=== PATIENT | female | born 1980 | race Caucasian/White ===

== ENCOUNTER 2017-10-08 20:12 | Observation (INO) ==
[2017-10-08] MEDS ORDERED: ASPIRIN 325 MG TABLET PO STA (20:58)
[2017-10-08] MEDS ORDERED: ENOXAPARIN 30 MG/0.3 ML SYRINGE SUBCUT STA (21:02)
[2017-10-08 21:21] LABS: Basophils # 0.1 10*3/uL (0.0-0.2); Basophils % 0.8 % (0.0-0.8); Eosinophils # 0.3 10*3/uL (0.0-0.87); Hematocrit 42.1 VOL% (35.7-47.0); Hemoglobin 13.9 GM/DL (12.0-16.0); Immature Granulocytes % 0.2 %; Immature Granulocytes Absolute 0.02 #; Lymphocytes % 27.9 % (21.3-54.2); Mean Corpuscular Hemoglobin 28 PG (27-34); Mean Corpuscular Volume 84.7 FL (87-102); Mean Platelet Volume 10.7 FL (9.6-12.0); Monocytes # 0.7 10*3/uL (0.11-0.8); Monocytes % 6.7 % (1.7-12.7); Neutrophils # 6.6 10*3/uL (1.4-7.4); Neutrophils % 61.4 % (38.7-73.9); Platelet Count 259 T/CUMM (130-400); Red Blood Count 4.97 MC/CUMM (3.8-5.5); Red Cell Distribution Width 12.9 % (9.3-17.3); White Blood Count 10.8 T/CUMM (4-12)
[2017-10-08 21:48] LABS: Albumin 4.3 G/DL (3.4-5.0); Bilirubin,Total 0.4 MG/DL (0.2-1.0); Calcium 9.1 MG/DL (8.5-10.1); Osmolality,Calculated 289.8 MOS/KG (273-304); Potassium 3.5 MMOL/L (3.5-5.1); Total Protein 7.5 G/DL (6.4-8.3)
[2017-10-08] MEDS ORDERED: ENOXAPARIN 80 MG/0.8 ML SYRINGE SUBCUT ONE (23:23)
[2017-10-09] MEDS ORDERED: ACETAMINOPHEN 325 MG TABLET PO PRN (01:20)
[2017-10-09] MEDS ORDERED: ONDANSETRON 4 MG/2 ML VIAL IV PRN (01:20)
[2017-10-09] MEDS ORDERED: MORPHINE 4 MG/1 ML VIAL IV PRN (01:20)
[2017-10-09] MEDS ORDERED: NITROGLYCERIN SL 0.4 MG TABLET SL PRN (01:20)
[2017-10-09] MEDS: METOPROLOL TARTRATE 50 MG TABLET PO SCH ×3 (01:37→21:41)
[2017-10-09 05:30] LABS: Basophils # 0.1 10*3/uL (0.0-0.2); Eosinophils # 0.4 10*3/uL (0.0-0.87); Eosinophils % 4.3 % (0.00-10.9); Hematocrit 38.3 VOL% (35.7-47.0); Hemoglobin 12.4 GM/DL (12.0-16.0); Immature Granulocytes % 0.2 %; Immature Granulocytes Absolute 0.02 #; Lymphocytes % 35.5 % (21.3-54.2); Mean Corpuscular HGB Conc 32.4 GM/DL (32-36); Mean Corpuscular Hemoglobin 27 PG (27-34); Mean Corpuscular Volume 84.4 FL (87-102); Mean Platelet Volume 10.9 FL (9.6-12.0); Monocytes # 0.7 10*3/uL (0.11-0.8); Monocytes % 8.1 % (1.7-12.7); Neutrophils # 4.2 10*3/uL (1.4-7.4); Neutrophils % 50.9 % (38.7-73.9); Platelet Count 241 T/CUMM (130-400); Red Blood Count 4.54 MC/CUMM (3.8-5.5); White Blood Count 8.3 T/CUMM (4-12)
[2017-10-09 06:11] LABS: Calcium 8.9 MG/DL (8.5-10.1); Osmolality,Calculated 280.4 MOS/KG (273-304); Potassium 3.2 MMOL/L (3.5-5.1); Risk Ratio 2.34; Thyroid Stimulating Hormone 2.73 uIU/ml (0.358-3.74); VLDL CHOLESTEROL 19.8 MG/DL
[2017-10-09] MEDS: ASPIRIN EC 81 MG TABLET PO SCH (10:06)
[2017-10-09] MEDS: LISINOPRIL 10 MG TABLET PO SCH (10:06)
[2017-10-09] MEDS: ENOXAPARIN 60 MG/0.6 ML SYRINGE SUBCUT SCH ×2 (10:06→21:41)
[2017-10-09 10:37] LABS: Amorphous Crystals,Urine Occasional /HPF (Few); Apearance,Urine CLEAR (Clear); Bacteria,Urine Occasional /HPF (Few); Bilirubin,Urine Negative (Negative); Blood, Urine Negative (Negative); Glucose,Urine (UA) Negative (Negative); Ketones,Urine 20 mg/dL (Negative); Mucus,Urine Many /LPF (Occasional); Nitrite,Urine Negative (Negative); Protein,Urine 30 MG/DL; RBC,Urine 3 /HPF (0-4); Squamous Epithelial Cell,Urine Occasional /HPF (0-10); Urine Color Yellow (Yellow); Urine Specific Gravity 1.032 (1.001-1.035); WBC,Urine 3 /HPF (0-6)
[2017-10-09 10:45] LABS: Barbiturates Screen,Urine Negative (Negative); Benzodiazepines Screen,Urine Negative (Negative); Cannabinoid Screen,Urine Positive (Negative); Opiate Screen,Urine Negative (Negative); Phencyclidine Screen,Urine Negative (Negative)
[2017-10-09] MEDS ORDERED: LOVASTATIN 20 MG TABLET PO SCH (17:00)
[2017-10-10 08:06] VITALS: BP 124/80
[2017-10-10] MEDS: LISINOPRIL 10 MG TABLET PO SCH (14:45)
[2017-10-10] MEDS: METOPROLOL TARTRATE 50 MG TABLET PO SCH (14:45)
[2017-10-10] MEDS: ASPIRIN EC 81 MG TABLET PO SCH (14:45)
[2017-10-10] MEDS: ENOXAPARIN 60 MG/0.6 ML SYRINGE SUBCUT SCH (14:46)
== END 2017-10-10 16:14 | disposition home or self-care (01) ==
LOC: N.ED 20:12 → N.EDINP 20:12 → N.TELEN 10-09 00:03

== ENCOUNTER 2017-10-20 16:14 | Inpatient (IN) ==
[2017-10-20] MEDS ORDERED: DEXTROSE 50% 25 GM/50 ML VIAL IV PRN (16:29)
[2017-10-20] MEDS ORDERED: GLUCAGON 1 MG VIAL IM PRN (16:29)
[2017-10-20] MEDS ORDERED: SODIUM CHLORIDE 0.9% 1,000 ML IV SCH (16:30)
[2017-10-20 19:18] LABS: Basophils # 0.1 10*3/uL (0.0-0.2); Basophils % 0.9 % (0.0-0.8); Eosinophils # 0.1 10*3/uL (0.0-0.87); Eosinophils % 1.9 % (0.00-10.9); Hematocrit 37.2 VOL% (35.7-47.0); Immature Granulocytes % 0.3 %; Immature Granulocytes Absolute 0.02 #; Lymphocytes # 2.5 10*3/uL (1.4-4.0); Mean Corpuscular HGB Conc 32.3 GM/DL (32-36); Mean Corpuscular Hemoglobin 28 PG (27-34); Mean Corpuscular Volume 85.9 FL (87-102); Mean Platelet Volume 10.7 FL (9.6-12.0); Monocytes # 0.5 10*3/uL (0.11-0.8); Monocytes % 7.2 % (1.7-12.7); Neutrophils # 3.5 10*3/uL (1.4-7.4); Neutrophils % 52.7 % (38.7-73.9); Platelet Count 209 T/CUMM (130-400); Red Blood Count 4.33 MC/CUMM (3.8-5.5); Red Cell Distribution Width 13.7 % (9.3-17.3); White Blood Count 6.7 T/CUMM (4-12)
[2017-10-20] MEDS ORDERED: CLORAZEPATE 3.75 MG TABLET PO PRN (19:30)
[2017-10-20 19:41] LABS: Alanine Aminotransferase 60 U/L (13-56); Albumin 3.2 G/DL (3.4-5.0); Alkaline Phosphatase 80 U/L (45-117); Aspartate Amino Transferase 52 U/L (0-37); Bilirubin,Total < 0.39 MG/DL (0.2-1.0); Blood Urea Nitrogen 13 MG/DL (7-18); Calcium 7.9 MG/DL (8.5-10.1); Glucose 77 MG/DL (74-106); Osmolality,Calculated 277.4 MOS/KG (273-304); Potassium 4.2 MMOL/L (3.5-5.1); Sodium 140 MMOL/L (136-145); Total Protein 6.5 G/DL (6.4-8.3)
[2017-10-20] MEDS ORDERED: DIAZEPAM 5 MG TABLET PO ONE (20:13)
[2017-10-20] MEDS ORDERED: FAMOTIDINE 20 MG TABLET PO ONE (20:13)
[2017-10-20] MEDS: CHLORHEXIDINE 0.12% ORAL RINSE 60 ML BOTTLE SWISH/SPIT SCH (20:50)
[2017-10-20] MEDS ORDERED: ZALEPLON 5 MG CAPSULE PO PRN (21:00)
[2017-10-20] MEDS: CHLORHEXIDINE 4% SOLN 118 ML BOTTLE TOP SCH (21:15)
[2017-10-21 04:34] LABS: ABG HCO3 24.5 MMOL/L (20-26); ABG Oxygen Saturation 97.5 % (95-100); ABG PH 7.359 (7.35-7.45); ABG PO2 98.3 MM HG (80-95); ABG TCO2 23.1 MMOL/L (23-27)
[2017-10-21] MEDS ORDERED: DIAZEPAM 5 MG TABLET PO ONE (05:30)
[2017-10-21] MEDS ORDERED: FAMOTIDINE 20 MG TABLET PO ONE (05:30)
[2017-10-21] MEDS ORDERED: PAPAVERINE 60 MG/2 ML VIAL ONE (05:38)
[2017-10-21] MEDS ORDERED: VANCOMYCIN 1,000 MG VIAL ONE (05:39)
[2017-10-21] MEDS ORDERED: MIDAZOLAM 10 MG/2 ML VIAL ONE ×2 (05:49→05:50)
[2017-10-21] MEDS ORDERED: HEPARIN/NACL 0.9% 2 UNITS/ML 500 ML IV ONE (05:49)
[2017-10-21] MEDS ORDERED: SUFentanil 250 MCG/5 ML AMP ONE (05:49)
[2017-10-21] MEDS ORDERED: NITROGLYCERIN DRIP 50 MG/250 ML BOTTLE IV ONE (05:50)
[2017-10-21] MEDS ORDERED: PHENYLEPHRINE DRIP 20 MG/250 ML PREMIX IV ONE ×2 (05:50)
[2017-10-21] MEDS ORDERED: CEFUROXIME INJ 1,500 MG in SYRINGE 1 EACH IV ONE (06:30)
[2017-10-21] MEDS: CHLORHEXIDINE 0.12% ORAL RINSE 60 ML BOTTLE SWISH/SPIT SCH ×4 (06:32→20:58)
[2017-10-21] MEDS ORDERED: PHENYLEPHRINE DRIP 40 MG/250 ML PREMIX IV ONE (07:27)
[2017-10-21] MEDS ORDERED: CALCIUM CHLORIDE 1,000 MG/10 ML SYRINGE IV ONE (07:28)
[2017-10-21] MEDS ORDERED: POTASSIUM CHLORIDE RIDER 100 ML IV ONE (07:28)
[2017-10-21] MEDS ORDERED: SODIUM BICARBONATE 50 MEQ/50 ML SYRINGE IV ONE ×2 (07:28→10:07)
[2017-10-21] MEDS ORDERED: EPINEPHrine 1 MG/10 ML SYRINGE ONE (07:29)
[2017-10-21] MEDS ORDERED: ALBUMIN 5% 12.5 GM/250 ML VIAL IV ONE (07:29)
[2017-10-21 07:37] LABS: ABG Base Excess -0.2 MMOL/L (-2.5-2.5); ABG HCO3 22.2 MMOL/L (20-26); ABG Oxygen Saturation 99.3 % (95-100); ABG PH 7.501 (7.35-7.45); ABG PO2 493.3 MM HG (80-95); Glucose Heart Surgery 77 MG/DL (74-106); Hemoglobin Heart Surgery 11.6 G/DL (12.0-16.0); Ionized Calcium Arterial 1.07 MMOL/L (1.21-1.46); PH Patient Temp Arterial 7.501; PO2 Patient Temp Arterial 493.3 MM HG; Patient Temperature 37 CELCIUS; Potassium Heart/CVR 3.8 MMOL/L (3.5-5.1); Sodium Heart/CVR 138 MMOL/L (135-145)
[2017-10-21] MEDS: CHLORHEXIDINE 4% SOLN 118 ML BOTTLE TOP SCH (08:20)
[2017-10-21 09:02] LABS: Hemoglobin Heart Surgery 8.7 G/DL (12.0-16.0); PCO2 Patient Temp Venous 29.3 MM HG; PH Patient Temp Venous 7.476; PO2 Patient Temp Venous 42.1 MM HG; VBG Base Excess -1.2 MEQ/L (0-4); VBG HCO3 23.3 MEQ/L (24-28); VBG Oxygen Saturation 89.2 %; VBG PCO2 33.9 MMHG (41-51); VBG PH 7.432; VBG PO2 51.7 MMHG (17-40)
[2017-10-21 09:34] LABS: Hematocrit Heart Surgery 28.7 PERCENT (37-47); Hemoglobin Heart Surgery 9.3 G/DL (12.0-16.0); PH Patient Temp Venous 7.428; PO2 Patient Temp Venous 40.2 MM HG; Potassium Heart/CVR 5.8 MMOL/L (3.5-5.1); VBG HCO3 22.4 MEQ/L (24-28); VBG Oxygen Saturation 77.9 %; VBG PH 7.428; VBG PO2 40.2 MMHG (17-40)
[2017-10-21 09:58] LABS: ABG Base Excess -3.9 MMOL/L (-2.5-2.5); ABG HCO3 21.2 MMOL/L (20-26); ABG Oxygen Saturation 99.7 % (95-100); ABG PCO2 30.7 MM HG (35-48); ABG PH 7.417 (7.35-7.45); ABG TCO2 17.8 MMOL/L (23-27); Glucose Heart Surgery 214 MG/DL (74-106); Hematocrit Heart Surgery 32.7 PERCENT (37-47); Hemoglobin Heart Surgery 10.6 G/DL (12.0-16.0); Ionized Calcium Arterial 1.62 MMOL/L (1.21-1.46); PCO2 Patient Temp Arterial 30.7 MMHG; PH Patient Temp Arterial 7.417; Patient Temperature 37 CELCIUS; Potassium Heart/CVR 4.3 MMOL/L (3.5-5.1); Sodium Heart/CVR 134 MMOL/L (135-145)
[2017-10-21] MEDS ORDERED: MAGNESIUM SULFATE 10 GM/20 ML VIAL IV ONE (10:07)
[2017-10-21] MEDS ORDERED: HEPARIN 10,000 UNIT/10 ML VIAL ONE (10:07)
[2017-10-21] MEDS ORDERED: methylPREDNISolone SOD SUC 1,000 MG/8 ML VIAL ONE (10:07)
[2017-10-21] MEDS ORDERED: ALBUMIN 25% 25 GM/100 ML VIAL IV ONE (10:07)
[2017-10-21] MEDS ORDERED: FUROSEMIDE 20 MG/2 ML VIAL ONE (10:07)
[2017-10-21] MEDS ORDERED: DEXTROSE 5% KCL 20 MEQ 20 MEQ/1,000 ML BAG IV ONE (10:07)
[2017-10-21] MEDS ORDERED: MANNITOL 12.5 GM/50 ML VIAL IV ONE (10:07)
[2017-10-21] MEDS ORDERED: PROTAMINE SULFATE 250 MG/25 ML VIAL IV ONE (10:07)
[2017-10-21] MEDS ORDERED: PHENYLEPHRINE 1 MG/10 ML SYRINGE IV ONE ×2 (10:07→11:06)
[2017-10-21] MEDS ORDERED: VECURONIUM 10 MG VIAL IV PRN ×2 (11:01)
[2017-10-21] MEDS ORDERED: CALCIUM CHLORIDE 1,000 MG/10 ML SYRINGE IV PRN (11:01)
[2017-10-21] MEDS ORDERED: MAGNESIUM SULF RIDER 4 GM in PREMIX 1 EACH IV PRN (11:01)
[2017-10-21] MEDS ORDERED: ONDANSETRON 4 MG/2 ML VIAL IV PRN (11:01)
[2017-10-21] MEDS ORDERED: NITROPRUSSIDE 100 MG in DEXTROSE 5% 250 ML IV PRN (11:01)
[2017-10-21] MEDS ORDERED: MIDAZOLAM 2 MG/2 ML VIAL IV PRN (11:01)
[2017-10-21] MEDS ORDERED: MORPHINE 4 MG/1 ML VIAL IV PRN (11:01)
[2017-10-21] MEDS ORDERED: MIDAZOLAM 10 MG/2 ML VIAL IV PRN (11:01)
[2017-10-21] MEDS ORDERED: INSULIN REGULAR 100 UNIT/ML IV PRN (11:01)
[2017-10-21] MEDS ORDERED: MAGNESIUM SULF RIDER 2 GM in PREMIX 1 EACH IV PRN (11:01)
[2017-10-21] MEDS ORDERED: PHENYLEPHRINE DRIP 40 MG/250 ML PREMIX IV PRN (11:01)
[2017-10-21] MEDS ORDERED: DEXTROSE 50% 25 GM/50 ML VIAL IV PRN ×2 (11:01)
[2017-10-21] MEDS ORDERED: MORPHINE 10 MG/1 ML VIAL IV PRN (11:01)
[2017-10-21] MEDS ORDERED: INSULIN REGULAR 100 UNIT/ML IV ONE (11:01)
[2017-10-21] MEDS ORDERED: ACETAMINOPHEN 650 MG SUPP RECTAL PRN (11:01)
[2017-10-21] MEDS ORDERED: SEVOFLURANE 1 UNIT/15 MINUTE INH ONE (11:05)
[2017-10-21] MEDS ORDERED: CALCIUM CHLORIDE 1,000 MG/10 ML VIAL IV ONE (11:05)
[2017-10-21] MEDS ORDERED: MINERAL OIL/PETROLATUM OPH OINT 3.5 GM TUBE ONE (11:05)
[2017-10-21] MEDS ORDERED: ETOMIDATE 40 MG/20 ML VIAL IV ONE (11:05)
[2017-10-21] MEDS ORDERED: AMINOCAPROIC ACID 5,000 MG/20 ML VIAL IV ONE (11:06)
[2017-10-21] MEDS ORDERED: SODIUM CHLORIDE 0.9% 1,000 ML IV ONE (11:06)
[2017-10-21] MEDS ORDERED: ROCURONIUM 100 MG/10 ML VIAL IV ONE (11:06)
[2017-10-21] MEDS ORDERED: SODIUM CHLORIDE 0.9% 250 ML IV ONE (11:06)
[2017-10-21 11:19] LABS: ABG HCO3 25.3 MMOL/L (20-26); ABG Oxygen Saturation 99.3 % (95-100); ABG PCO2 36.4 MM HG (35-48); ABG PH 7.441 (7.35-7.45); ABG TCO2 21.8 MMOL/L (23-27); Glucose Heart Surgery 162 MG/DL (74-106); Hematocrit Heart Surgery 37.5 PERCENT (37-47); Hemoglobin Heart Surgery 12.2 G/DL (12.0-16.0); Potassium Heart/CVR 3.4 MMOL/L (3.5-5.1)
[2017-10-21 11:21] LABS: Basophils % 0.3 % (0.0-0.8); Eosinophils # 0.1 10*3/uL (0.0-0.87); Eosinophils % 0.9 % (0.00-10.9); Hematocrit 36.1 VOL% (35.7-47.0); Hemoglobin 12.1 GM/DL (12.0-16.0); Immature Granulocytes % 0.5 %; Immature Granulocytes Absolute 0.05 #; Lymphocytes # 0.7 10*3/uL (1.4-4.0); Lymphocytes % 7.1 % (21.3-54.2); Mean Corpuscular HGB Conc 33.5 GM/DL (32-36); Mean Corpuscular Hemoglobin 28 PG (27-34); Mean Corpuscular Volume 84.7 FL (87-102); Mean Platelet Volume 10.7 FL (9.6-12.0); Monocytes # 0.5 10*3/uL (0.11-0.8); Monocytes % 5.4 % (1.7-12.7); Neutrophils % 85.8 % (38.7-73.9); Platelet Count 180 T/CUMM (130-400); Red Blood Count 4.26 MC/CUMM (3.8-5.5); Red Cell Distribution Width 13.4 % (9.3-17.3); White Blood Count 9.3 T/CUMM (4-12)
[2017-10-21] MEDS: POTASSIUM CHLORIDE RIDER 20 MEQ in PREMIX 1 EACH IV PRN ×6 (11:31→20:59)
[2017-10-21] MEDS: SODIUM CHLORIDE 0.45% 1,000 ML IV SCH ×2 (11:31)
[2017-10-21] MEDS: KETOROLAC 30 MG/1 ML VIAL IV SCH ×3 (11:33→23:26)
[2017-10-21 11:38] LABS: Partial Thromboplastin Time 28.1 SECS (0-40)
[2017-10-21 11:52] LABS: Calcium 10.3 MG/DL (8.5-10.1); Potassium 3.6 MMOL/L (3.5-5.1); Total Protein 5.4 G/DL (6.4-8.3)
[2017-10-21 11:54] LABS: CKMB % 8.1 %
[2017-10-21] MEDS ORDERED: HYDROmorphone 2 MG/1 ML VIAL IV PRN (11:54)
[2017-10-21 11:56] LABS: Troponin I 2.64 NG/ML (0.00-0.045)
[2017-10-21] MEDS ORDERED: PROTAMINE SULFATE 50 MG/5 ML VIAL IV ONE ×2 (12:35→12:46)
[2017-10-21 12:50] LABS: ABG Base Excess 1.4 MMOL/L (-2.5-2.5); ABG HCO3 25.7 MMOL/L (20-26); ABG Oxygen Saturation 99.1 % (95-100); ABG PCO2 36.9 MM HG (35-48); ABG PH 7.443 (7.35-7.45); Glucose Heart Surgery 126 MG/DL (74-106); Hematocrit Heart Surgery 39.6 PERCENT (37-47); Hemoglobin Heart Surgery 12.9 G/DL (12.0-16.0); Potassium Heart/CVR 4.2 MMOL/L (3.5-5.1)
[2017-10-21 14:01] LABS: ABG Base Excess 1.3 MMOL/L (-2.5-2.5); ABG HCO3 25.6 MMOL/L (20-26); ABG Oxygen Saturation 99.1 % (95-100); ABG PCO2 37.5 MM HG (35-48); ABG PH 7.437 (7.35-7.45); Glucose Heart Surgery 136 MG/DL (74-106); Hematocrit Heart Surgery 40.4 PERCENT (37-47); Hemoglobin Heart Surgery 13.1 G/DL (12.0-16.0); Potassium Heart/CVR 3.7 MMOL/L (3.5-5.1)
[2017-10-21] MEDS: ALBUMIN 5% 12.5 GM in PREMIX 1 EACH IV PRN ×3 (14:02→18:09)
[2017-10-21] MEDS: INSULIN REGULAR DRIP 100 ML IV SCH (14:08)
[2017-10-21] MEDS: POTASSIUM CHLORIDE RIDER 10 MEQ in PREMIX 1 EACH IV PRN ×2 (15:12→18:00)
[2017-10-21 16:01] LABS: ABG Base Excess -0.1 MMOL/L (-2.5-2.5); ABG HCO3 24.4 MMOL/L (20-26); ABG PCO2 40.9 MM HG (35-48); ABG PH 7.391 (7.35-7.45); Glucose Heart Surgery 141 MG/DL (74-106); Hematocrit Heart Surgery 36.6 PERCENT (37-47); Hemoglobin Heart Surgery 11.9 G/DL (12.0-16.0); Potassium Heart/CVR 4.4 MMOL/L (3.5-5.1)
[2017-10-21] MEDS: INSULIN REGULAR 100 UNIT/ML SUBCUT SCH ×3 (16:07→23:33)
[2017-10-21 16:31] LABS: Apearance,Urine CLEAR (Clear); Bacteria,Urine Occasional /HPF (Few); Bilirubin,Urine Negative (Negative); Blood, Urine Negative (Negative); Glucose,Urine (UA) Negative (Negative); Hyaline Casts,Urine 2 /LPF (0-3); Ketones,Urine Negative (Negative); Mucus,Urine Occasional /LPF (Occasional); Nitrite,Urine Negative (Negative); Protein,Urine Negative; RBC,Urine <1 /HPF (0-4); Urine Color Straw (Yellow); Urine Specific Gravity 1.012 (1.001-1.035); Urine Urobilinogen < 2.0 EU/DL (0.2-1.0); WBC,Urine <1 /HPF (0-6)
[2017-10-21 17:35] LABS: ABG Base Excess -0.9 MMOL/L (-2.5-2.5); ABG HCO3 23.7 MMOL/L (20-26); ABG Oxygen Saturation 98.7 % (95-100); ABG PCO2 41.3 MM HG (35-48); ABG PH 7.377 (7.35-7.45); ABG TCO2 21.6 MMOL/L (23-27); Glucose Heart Surgery 140 MG/DL (74-106); Hematocrit Heart Surgery 36.2 PERCENT (37-47); Hemoglobin Heart Surgery 11.7 G/DL (12.0-16.0); Potassium Heart/CVR 4.5 MMOL/L (3.5-5.1)
[2017-10-21] MEDS: CEFUROXIME INJ 1,500 MG in SYRINGE 1 EACH IV SCH (18:01)
[2017-10-21] MEDS: LACTATED RINGERS 250 ML IV PRN ×4 (18:06→18:39)
[2017-10-21] MEDS ORDERED: LACTATED RINGERS 1,000 ML IV PRN (18:49)
[2017-10-21 18:50] LABS: ABG Base Excess -2.6 MMOL/L (-2.5-2.5); ABG HCO3 22.2 MMOL/L (20-26); ABG Oxygen Saturation 98.3 % (95-100); ABG PCO2 40.9 MM HG (35-48); ABG PH 7.354 (7.35-7.45); ABG TCO2 20.7 MMOL/L (23-27); Glucose Heart Surgery 155 MG/DL (74-106); Hemoglobin Heart Surgery 10.4 G/DL (12.0-16.0); Potassium Heart/CVR 4.3 MMOL/L (3.5-5.1)
[2017-10-21] MEDS ORDERED: FUROSEMIDE 40 MG/4 ML VIAL IV PRN (19:52)
[2017-10-21 20:52] LABS: CKMB % 5.6 %
[2017-10-21 20:55] LABS: Troponin I 3.96 NG/ML (0.00-0.045)
[2017-10-22 03:53] LABS: ABG Base Excess -1.7 MMOL/L (-2.5-2.5); ABG Oxygen Saturation 99.1 % (95-100); ABG PCO2 39.6 MM HG (35-48); ABG PH 7.376 (7.35-7.45); ABG TCO2 20.9 MMOL/L (23-27); Glucose Heart Surgery 164 MG/DL (74-106); Hematocrit Heart Surgery 34.7 PERCENT (37-47); Hemoglobin Heart Surgery 11.3 G/DL (12.0-16.0)
[2017-10-22 03:55] LABS: Basophils % 0.1 % (0.0-0.8); Hematocrit 34.6 VOL% (35.7-47.0); Hemoglobin 11.3 GM/DL (12.0-16.0); Immature Granulocytes % 0.4 %; Immature Granulocytes Absolute 0.09 #; Lymphocytes # 0.6 10*3/uL (1.4-4.0); Lymphocytes % 2.5 % (21.3-54.2); Mean Corpuscular HGB Conc 32.7 GM/DL (32-36); Mean Corpuscular Hemoglobin 28 PG (27-34); Mean Corpuscular Volume 86.5 FL (87-102); Monocytes # 0.9 10*3/uL (0.11-0.8); Monocytes % 3.9 % (1.7-12.7); Neutrophils # 20.9 10*3/uL (1.4-7.4); Neutrophils % 93.1 % (38.7-73.9); Platelet Count 178 T/CUMM (130-400); Red Cell Distribution Width 13.7 % (9.3-17.3); White Blood Count 22.5 T/CUMM (4-12)
[2017-10-22] MEDS: POTASSIUM CHLORIDE RIDER 20 MEQ in PREMIX 1 EACH IV PRN ×2 (03:58→07:26)
[2017-10-22 04:13] LABS: CKMB % 4.2 %
[2017-10-22 04:17] LABS: Troponin I 3.36 NG/ML (0.00-0.045)
[2017-10-22 04:19] LABS: Albumin 3.9 G/DL (3.4-5.0); Bilirubin,Direct 0.17 MG/DL (0.0-0.20); Bilirubin,Total 0.6 MG/DL (0.2-1.0); Calcium 9.2 MG/DL (8.5-10.1); Osmolality,Calculated 290.8 MOS/KG (273-304); Total Protein 6.4 G/DL (6.4-8.3)
[2017-10-22] MEDS: INSULIN REGULAR 100 UNIT/ML SUBCUT SCH ×2 (04:34→07:25)
[2017-10-22] MEDS: KETOROLAC 30 MG/1 ML VIAL IV SCH ×2 (04:39→12:16)
[2017-10-22 04:46] LABS: Lymphocytes 10 % (20-55); Platelet Estimate Normal; Segmented Neutrophils 90 % (50-85); Total Cells Counted 100
[2017-10-22 05:41] LABS: ABG Base Excess -0.7 MMOL/L (-2.5-2.5); ABG HCO3 23.9 MMOL/L (20-26); ABG Oxygen Saturation 99.4 % (95-100); ABG PCO2 31.6 MM HG (35-48); ABG PH 7.457 (7.35-7.45); ABG TCO2 19.7 MMOL/L (23-27); Glucose Heart Surgery 153 MG/DL (74-106); Hematocrit Heart Surgery 37.1 PERCENT (37-47); Potassium Heart/CVR 4.3 MMOL/L (3.5-5.1)
[2017-10-22] MEDS: CEFUROXIME INJ 1,500 MG in SYRINGE 1 EACH IV SCH (06:02)
[2017-10-22 07:13] LABS: ABG Base Excess -0.5 MMOL/L (-2.5-2.5); ABG Oxygen Saturation 99.2 % (95-100); ABG PCO2 35.7 MM HG (35-48); ABG PH 7.425 (7.35-7.45); ABG TCO2 20.9 MMOL/L (23-27); Glucose Heart Surgery 143 MG/DL (74-106); Hematocrit Heart Surgery 35.1 PERCENT (37-47); Hemoglobin Heart Surgery 11.4 G/DL (12.0-16.0); Potassium Heart/CVR 3.8 MMOL/L (3.5-5.1)
[2017-10-22] MEDS: POTASSIUM CHLORIDE RIDER 10 MEQ in PREMIX 1 EACH IV PRN (07:58)
[2017-10-22] MEDS ORDERED: LISINOPRIL 10 MG TABLET PO SCH (09:30)
[2017-10-22] MEDS ORDERED: METOPROLOL TARTRATE 50 MG TABLET PO SCH (09:30)
[2017-10-22] MEDS: METOPROLOL TARTRATE 25 MG TABLET PO SCH ×2 (10:19→21:04)
[2017-10-22] MEDS: CHLORHEXIDINE 0.12% ORAL RINSE 60 ML BOTTLE SWISH/SPIT SCH ×2 (10:20→21:05)
[2017-10-22] MEDS ORDERED: MAGNESIUM HYDROXIDE SUSP 30 ML UDCUP PO PRN (11:32)
[2017-10-22] MEDS ORDERED: MAGNESIUM SULF RIDER 4 GM in PREMIX 1 EACH IV PRN (11:32)
[2017-10-22] MEDS ORDERED: POTASSIUM CHLORIDE 20 MEQ TABLET PO PRN (11:32)
[2017-10-22] MEDS ORDERED: GLUCAGON 1 MG VIAL IM PRN ×2 (11:32)
[2017-10-22] MEDS ORDERED: MAGNESIUM SULF RIDER 2 GM in PREMIX 1 EACH IV PRN (11:32)
[2017-10-22] MEDS ORDERED: SODIUM CHLOR 0.45% KCL 20 MEQ 20 MEQ/1,000 ML BAG IV SCH (11:32)
[2017-10-22] MEDS ORDERED: ACETAMINOPHEN 325 MG TABLET PO PRN (11:32)
[2017-10-22] MEDS ORDERED: DEXTROSE 50% 25 GM/50 ML VIAL IV PRN ×2 (11:32)
[2017-10-22] MEDS ORDERED: ALUMINUM/MAGNES/SIMETH MAX STR 30 ML UDCUP PO PRN (11:32)
[2017-10-22] MEDS: KETOROLAC 15 MG/1 ML VIAL IV SCH ×3 (11:59→23:26)
[2017-10-22 12:05] LABS: CKMB % 2.8 %
[2017-10-22 12:07] LABS: Troponin I 3.35 NG/ML (0.00-0.045)
[2017-10-22] MEDS: SODIUM CHLORIDE 0.45% 1,000 ML IV SCH ×2 (12:14)
[2017-10-22] MEDS: INSULIN REGULAR DRIP 100 ML IV SCH (12:15)
[2017-10-22] MEDS: HYDROmorphone 2 MG/1 ML VIAL IV PRN (15:08)
[2017-10-22] MEDS: ONDANSETRON 4 MG/2 ML VIAL IV PRN ×2 (18:30→23:26)
[2017-10-23] MEDS: oxyCODONE/ACETAMINOPHEN 5-325 MG TABLET PO PRN ×4 (04:22→21:58)
[2017-10-23] MEDS: ONDANSETRON 4 MG/2 ML VIAL IV PRN (04:30)
[2017-10-23] MEDS ORDERED: FUROSEMIDE 40 MG/4 ML VIAL IV ONE (06:00)
[2017-10-23 06:02] LABS: Basophils % 0.2 % (0.0-0.8); Eosinophils % 0.1 % (0.00-10.9); Hematocrit 29.3 VOL% (35.7-47.0); Hemoglobin 9.3 GM/DL (12.0-16.0); Immature Granulocytes % 0.4 %; Immature Granulocytes Absolute 0.06 #; Lymphocytes # 2.1 10*3/uL (1.4-4.0); Lymphocytes % 13.5 % (21.3-54.2); Mean Corpuscular HGB Conc 31.7 GM/DL (32-36); Mean Corpuscular Hemoglobin 28 PG (27-34); Mean Platelet Volume 12.1 FL (9.6-12.0); Monocytes # 1.1 10*3/uL (0.11-0.8); Monocytes % 7.2 % (1.7-12.7); Neutrophils # 12.1 10*3/uL (1.4-7.4); Neutrophils % 78.6 % (38.7-73.9); Platelet Count 149 T/CUMM (130-400); Red Blood Count 3.33 MC/CUMM (3.8-5.5); Red Cell Distribution Width 14.5 % (9.3-17.3); White Blood Count 15.5 T/CUMM (4-12)
[2017-10-23] MEDS: KETOROLAC 15 MG/1 ML VIAL IV SCH (06:11)
[2017-10-23 06:21] LABS: Alanine Aminotransferase 41 U/L (13-56); Albumin 3.1 G/DL (3.4-5.0); Alkaline Phosphatase 56 U/L (45-117); Aspartate Amino Transferase 45 U/L (0-37); Bilirubin,Direct < 0.100 MG/DL (0.0-0.20); Bilirubin,Indirect 0.4 MG/DL (0.0-1.0); Blood Urea Nitrogen 24 MG/DL (7-18); CKMB % 1.6 %; Calcium 8.4 MG/DL (8.5-10.1); Glucose 97 MG/DL (74-106); Osmolality,Calculated 280.5 MOS/KG (273-304); Potassium 4.1 MMOL/L (3.5-5.1); Sodium 139 MMOL/L (136-145); Total Protein 5.8 G/DL (6.4-8.3)
[2017-10-23] MEDS ORDERED: KETOROLAC 15 MG/1 ML VIAL IV PRN (08:15)
[2017-10-23] MEDS: METOPROLOL TARTRATE 25 MG TABLET PO SCH ×2 (08:40→20:34)
[2017-10-23] MEDS: FERROUS SULFATE 325 MG TABLET PO SCH (08:41)
[2017-10-23] MEDS: LOVASTATIN 20 MG TABLET PO SCH (08:41)
[2017-10-23] MEDS: DOCUSATE SODIUM 100 MG CAPSULE PO SCH (08:41)
[2017-10-23] MEDS: NICOTINE 21 MG/24 HR PATCH TRANSDERM SCH (08:41)
[2017-10-23] MEDS: ASPIRIN EC 325 MG TABLET PO SCH (08:41)
[2017-10-23] MEDS: PANTOPRAZOLE 40 MG TABLET PO SCH (08:41)
[2017-10-23] MEDS: CHLORHEXIDINE 0.12% ORAL RINSE 60 ML BOTTLE SWISH/SPIT SCH ×2 (08:42→20:32)
[2017-10-24] MEDS: oxyCODONE/ACETAMINOPHEN 5-325 MG TABLET PO PRN ×3 (04:32→21:49)
[2017-10-24 05:14] LABS: Basophils % 0.4 % (0.0-0.8); Eosinophils # 0.1 10*3/uL (0.0-0.87); Eosinophils % 1.1 % (0.00-10.9); Hematocrit 30.1 VOL% (35.7-47.0); Hemoglobin 10.1 GM/DL (12.0-16.0); Immature Granulocytes % 0.3 %; Immature Granulocytes Absolute 0.03 #; Lymphocytes # 1.9 10*3/uL (1.4-4.0); Lymphocytes % 20.8 % (21.3-54.2); Mean Corpuscular HGB Conc 33.6 GM/DL (32-36); Mean Corpuscular Hemoglobin 28 PG (27-34); Mean Corpuscular Volume 84.6 FL (87-102); Mean Platelet Volume 11.9 FL (9.6-12.0); Monocytes # 1.1 10*3/uL (0.11-0.8); Monocytes % 11.6 % (1.7-12.7); Neutrophils # 6.1 10*3/uL (1.4-7.4); Neutrophils % 65.8 % (38.7-73.9); Platelet Count 155 T/CUMM (130-400); Red Blood Count 3.56 MC/CUMM (3.8-5.5); White Blood Count 9.2 T/CUMM (4-12)
[2017-10-24 05:41] LABS: Alanine Aminotransferase 98 U/L (13-56); Albumin 3.3 G/DL (3.4-5.0); Alkaline Phosphatase 102 U/L (45-117); Aspartate Amino Transferase 92 U/L (0-37); Bilirubin,Indirect 0.4 MG/DL (0.0-1.0); Blood Urea Nitrogen 18 MG/DL (7-18); Calcium 9.1 MG/DL (8.5-10.1); Glucose 94 MG/DL (74-106); Osmolality,Calculated 278.5 MOS/KG (273-304); Sodium 139 MMOL/L (136-145); Total Protein 6.6 G/DL (6.4-8.3)
[2017-10-24] MEDS ORDERED: LACTULOSE 20 GM/30 ML UDCUP PO PRN (09:14)
[2017-10-24] MEDS: HYDROmorphone 2 MG/1 ML VIAL IV PRN (09:37)
[2017-10-24] MEDS: ONDANSETRON 4 MG/2 ML VIAL IV PRN (09:38)
[2017-10-24] MEDS: LOVASTATIN 20 MG TABLET PO SCH (09:43)
[2017-10-24] MEDS: NICOTINE 21 MG/24 HR PATCH TRANSDERM SCH (09:43)
[2017-10-24] MEDS: PANTOPRAZOLE 40 MG TABLET PO SCH (09:43)
[2017-10-24] MEDS: ASPIRIN EC 325 MG TABLET PO SCH (09:43)
[2017-10-24] MEDS: DOCUSATE SODIUM 100 MG CAPSULE PO SCH (09:43)
[2017-10-24] MEDS: METOPROLOL TARTRATE 25 MG TABLET PO SCH ×2 (09:43→21:49)
[2017-10-24] MEDS: FERROUS SULFATE 325 MG TABLET PO SCH (09:43)
[2017-10-24] MEDS: CHLORHEXIDINE 0.12% ORAL RINSE 60 ML BOTTLE SWISH/SPIT SCH ×2 (10:09→21:51)
[2017-10-25] MEDS: oxyCODONE/ACETAMINOPHEN 5-325 MG TABLET PO PRN ×4 (00:56→21:39)
[2017-10-25] MEDS: ZALEPLON 5 MG CAPSULE PO PRN ×2 (00:57→21:39)
[2017-10-25] MEDS: METOPROLOL TARTRATE 25 MG TABLET PO SCH ×2 (08:45→21:40)
[2017-10-25] MEDS: NICOTINE 21 MG/24 HR PATCH TRANSDERM SCH (08:45)
[2017-10-25] MEDS: ASPIRIN EC 325 MG TABLET PO SCH (08:46)
[2017-10-25] MEDS: PANTOPRAZOLE 40 MG TABLET PO SCH (08:46)
[2017-10-25] MEDS: LOVASTATIN 20 MG TABLET PO SCH (08:46)
[2017-10-25] MEDS: FERROUS SULFATE 325 MG TABLET PO SCH (08:46)
[2017-10-25] MEDS: CHLORHEXIDINE 0.12% ORAL RINSE 60 ML BOTTLE SWISH/SPIT SCH ×2 (08:47→21:40)
[2017-10-25] MEDS: DOCUSATE SODIUM 100 MG CAPSULE PO SCH (08:47)
[2017-10-25] MEDS: ONDANSETRON 4 MG/2 ML VIAL IV PRN (21:45)
[2017-10-26] MEDS: oxyCODONE/ACETAMINOPHEN 5-325 MG TABLET PO PRN (02:42)
[2017-10-26 04:23] LABS: Basophils % 0.5 % (0.0-0.8); Eosinophils # 0.4 10*3/uL (0.0-0.87); Eosinophils % 5.5 % (0.00-10.9); Hematocrit 33.7 VOL% (35.7-47.0); Hemoglobin 11.2 GM/DL (12.0-16.0); Immature Granulocytes % 0.4 %; Immature Granulocytes Absolute 0.03 #; Lymphocytes # 1.7 10*3/uL (1.4-4.0); Lymphocytes % 21.8 % (21.3-54.2); Mean Corpuscular HGB Conc 33.2 GM/DL (32-36); Mean Corpuscular Hemoglobin 28 PG (27-34); Mean Corpuscular Volume 84.9 FL (87-102); Mean Platelet Volume 10.9 FL (9.6-12.0); Monocytes # 0.8 10*3/uL (0.11-0.8); Monocytes % 9.6 % (1.7-12.7); Neutrophils % 62.2 % (38.7-73.9); Platelet Count 243 T/CUMM (130-400); Red Blood Count 3.97 MC/CUMM (3.8-5.5); Red Cell Distribution Width 13.3 % (9.3-17.3)
[2017-10-26 04:37] LABS: Alanine Aminotransferase 115 U/L (13-56); Albumin 3.2 G/DL (3.4-5.0); Alkaline Phosphatase 217 U/L (45-117); Aspartate Amino Transferase 61 U/L (0-37); Bilirubin,Indirect 0.6 MG/DL (0.0-1.0); Blood Urea Nitrogen 20 MG/DL (7-18); Calcium 9.4 MG/DL (8.5-10.1); Glucose 92 MG/DL (74-106); Osmolality,Calculated 279.5 MOS/KG (273-304); Potassium 4.1 MMOL/L (3.5-5.1); Sodium 139 MMOL/L (136-145); Total Protein 7.1 G/DL (6.4-8.3)
[2017-10-26 04:38] LABS: Troponin I 0.554 NG/ML (0.00-0.045)
[2017-10-26] MEDS: PANTOPRAZOLE 40 MG TABLET PO SCH (08:40)
[2017-10-26] MEDS: DOCUSATE SODIUM 100 MG CAPSULE PO SCH (08:40)
[2017-10-26] MEDS: NICOTINE 21 MG/24 HR PATCH TRANSDERM SCH (08:40)
[2017-10-26] MEDS: FERROUS SULFATE 325 MG TABLET PO SCH (08:40)
[2017-10-26] MEDS: LOVASTATIN 20 MG TABLET PO SCH (08:41)
[2017-10-26] MEDS: ASPIRIN EC 325 MG TABLET PO SCH (08:41)
[2017-10-26] MEDS: METOPROLOL TARTRATE 25 MG TABLET PO SCH (08:41)
[2017-10-26 08:42] VITALS: BP 112/73
[2017-10-26] MEDS: CHLORHEXIDINE 0.12% ORAL RINSE 60 ML BOTTLE SWISH/SPIT SCH (08:44)
== END 2017-10-26 11:13 | disposition home health service (06) | DRG 236 ==
LOC: N.ICU 18:37 → N.CVR 10-21 07:42 → N.TELES 10-22 10:56